=== PATIENT | female | born 1995 | race African-American/Black ===

== ENCOUNTER 2023-05-06 09:14 | Inpatient (IN) | payer BC, OTHER ==
[2023-05-06] MEDS ORDERED: Diphenoxylate HCl/Atropine Tablet PO PRN ×2 (19:31)
[2023-05-06] MEDS ORDERED: Ibuprofen 800 MG TAB PO PRN (19:31)
[2023-05-06] MEDS ORDERED: HYDROcodone/Acetaminophen 5/325 mg Tablet PO PRN ×2 (19:31)
[2023-05-06] MEDS ORDERED: Zolpidem Tartrate 5 MG TAB PO PRN (19:31)
[2023-05-06] MEDS ORDERED: Carboprost 250 MCG/ML AMP IM PRN (19:31)
[2023-05-06] MEDS ORDERED: Lactated Ringer's 1,000 ML IV SCH (19:31)
[2023-05-06] MEDS ORDERED: Misoprostol 200 MCG TAB PR PRN (19:31)
[2023-05-06] MEDS ORDERED: Tranexamic Acid 1,000 MG/10 ML VIAL IVP PRN (19:31)
[2023-05-06] MEDS ORDERED: Acetaminophen 500 MG TAB PO PRN (19:31)
[2023-05-06] MEDS ORDERED: Oxytocin 30 units/NS 500 ML 500 ML IV SCH ×2 (19:31)
[2023-05-06] MEDS ORDERED: Promethazine HCl 25 MG/ML VIAL IM PRN (19:31)
[2023-05-06] MEDS ORDERED: fentaNYL 50 mcg/mL 1 mL Vial SLOW IVP PRN (19:31)
[2023-05-06] MEDS ORDERED: Methylergonovine 0.2 MG/ML VIAL IM PRN (19:31)
[2023-05-06] MEDS ORDERED: hydrALAZINE 20 MG/ML VIAL SLOW IVP PRN (19:31)
[2023-05-06] MEDS ORDERED: Lidocaine 1% (PF) 30 ML VIAL SC PRN (19:31)
[2023-05-06] MEDS ORDERED: Ondansetron PF 4 MG/2 ML Vial IVP PRN (19:31)
[2023-05-06 19:57] VITALS: BMI 29.5
[2023-05-06 20:36] LABS: Hematocrit 34.4 % (34.9-44.5); Hemoglobin 12.4 g/dL (12.0-15.5); Mean Corpuscular Hemoglobin 33.4 pg (27.0-33.0); Mean Corpuscular Volume 92.7 fl (81.6-98.3); Mean Platelet Volume 11.1 fl (7.4-10.4); Platelet Count 264 10x3/uL (150-450); RBC Distribution Width 13.3 % (11.5-14.5); Red Blood Cell (RBC) Count 3.71 10x6/uL (3.90-5.03); White Blood Cell (WBC) Count 10.7 10x3/uL (3.5-10.5)
[2023-05-06] MEDS: Misoprostol 100 MCG TAB VAG SCH (20:37)
[2023-05-06 21:03] LABS: HBSAg Index 0.11 S/CO (0-0.99); Hep B Surf Ag - L&D Non-Reactive S/CO (NonReactive)
[2023-05-06 21:04] LABS: Syphilis Antibody Nonreactive (Nonreactive); Syphilis Antibody Index 0.06 S/CO (<1.00 Non-Reactive)
[2023-05-07] MEDS: Misoprostol 100 MCG TAB VAG SCH (03:45)
[2023-05-07] MEDS ORDERED: fentaNYL/Ropivacaine Epidural 100 ML ONE (06:39)
[2023-05-07] MEDS ORDERED: Ondansetron PF 4 MG/2 ML Vial IVP PRN (07:34)
[2023-05-07] MEDS ORDERED: Moisturizing Cream (Eucerin) 113 GM JAR TOP PRN (07:34)
[2023-05-07] MEDS ORDERED: Naloxone HCl 0.4 mg/ml Vial IVP PRN ×2 (07:34)
[2023-05-07] MEDS ORDERED: Lactated Ringer's 500 ML IV PRN (07:34)
[2023-05-07] MEDS ORDERED: Promethazine HCl 25 MG/ML VIAL IM PRN (07:34)
[2023-05-07] MEDS ORDERED: ePHEDrine Sulfate 50 MG/10 ML VIAL SLOW IVP PRN (07:34)
[2023-05-07] MEDS ORDERED: Acetaminophen 325 MG TAB PO PRN (07:34)
[2023-05-07] MEDS ORDERED: diphenhydrAMINE 50 MG/ML VIAL IVP PRN (07:34)
[2023-05-07] MEDS ORDERED: Communication Order-Pharmacy FS SCH (07:45)
[2023-05-07] MEDS ORDERED: fentaNYL 2 mcg/Ropivacaine 0.2% Epidural 100 ML CADD EPIDURAL SCH (07:45)
[2023-05-07] MEDS ORDERED: Lanolin Ointment 7 GM TUBE TOP PRN (15:56)
[2023-05-07] MEDS ORDERED: hydrALAZINE 20 MG/ML VIAL SLOW IVP PRN (15:56)
[2023-05-07] MEDS ORDERED: Milk Of Magnesia 30 ML UDCUP PO PRN (15:56)
[2023-05-07] MEDS ORDERED: Preparation H Ointment 28 GM TUBE PR PRN (15:56)
[2023-05-07] MEDS ORDERED: Benzocaine-Menthol 82.5 ML CAN TOP PRN (15:56)
[2023-05-07] MEDS ORDERED: Bisacodyl 10 MG SUPP PR PRN (15:56)
[2023-05-07] MEDS ORDERED: Boostrix 0.5 ML (Tdap) VIAL (>/=7 yrs of age) IM ONE (15:56)
[2023-05-07] MEDS: Ferrous Sulfate 325 MG TAB PO SCH (20:42)
[2023-05-07] MEDS: Ibuprofen 800 MG TAB PO SCH (20:43)
[2023-05-07] MEDS: Docusate 100 MG CAP PO SCH (21:13)
[2023-05-07] MEDS ORDERED: traMADol HCl 50 MG TAB PO PRN (23:45)
[2023-05-08] MEDS: Ibuprofen 800 MG TAB PO SCH ×3 (04:19→21:46)
[2023-05-08] MEDS: Docusate 100 MG CAP PO SCH ×2 (09:17→21:46)
[2023-05-08] MEDS: Ferrous Sulfate 325 MG TAB PO SCH (12:29)
[2023-05-08] MEDS: Prenatal Vitamin 1 TAB PO SCH (12:30)
[2023-05-09] MEDS: Ibuprofen 800 MG TAB PO SCH (06:05)
[2023-05-09] MEDS: Ferrous Sulfate 325 MG TAB PO SCH (07:12)
[2023-05-09 07:43] VITALS: BP 118/80; TEMP 97.7
[2023-05-09] MEDS: Docusate 100 MG CAP PO SCH (08:17)
[2023-05-09] MEDS: Prenatal Vitamin 1 TAB PO SCH (08:52)
== END 2023-05-09 12:00 | disposition home or self-care (01) | DRG 807 ==
LOC: CSHLD 19:18 → CSHPP 05-07 19:55
PROVIDERS: ADMIT Obstetrics & Gynecology; ATTEND Obstetrics & Gynecology
PROC: 10E0XZZ Delivery of Products of Conception, External Approach (ICD-10-PCS; principal; 2023-05-07)
PROC: 0KQM0ZZ Repair Perineum Muscle, Open Approach (ICD-10-PCS; 2023-05-07)
DX: O70.1 Second degree perineal laceration during delivery (principal); Z37.0 Single live birth; Z3A.40 40 weeks gestation of pregnancy; Z88.2 Allergy status to sulfonamides
CPT/HCPCS: 36415; 51702; 85027; 86780; 86850; 86900; 86901; 87340; J2590